=== PATIENT | female | born 1980 | race Caucasian/White ===

== ENCOUNTER 2016-12-23 22:20 | Inpatient (IN) | payer OTHER ==
[2016-12-23 22:39] VITALS: BMI 29.9
[2016-12-24] MEDS ORDERED: OXYTOCIN IN NS 334 ML IV PRN (01:14)
[2016-12-24] MEDS ORDERED: OXYTOCIN 10 UNITS/ML VIAL ONE (01:37)
[2016-12-24] MEDS ORDERED: LIDOCAINE 1% (PRES FREE) 30 ML VIAL ONE (01:37)
[2016-12-24] MEDS ORDERED: MINERAL OIL 25 ML BOT ONE (01:37)
[2016-12-24] MEDS ORDERED: OXYTOCIN IN NS 500 ML IV ONE (01:37)
[2016-12-24] MEDS ORDERED: LIDOCAINE Viscous 2% 15 ML UDCUP ONE (01:37)
[2016-12-24] MEDS ORDERED: FENTANYL/ROPIVACAINE EPIDURAL 250 ML EP ONE (01:53)
[2016-12-24] MEDS: LACTATED RINGERS 1,000 ML IV PRN ×4 (02:10→10:40)
[2016-12-24 02:14] LABS: HEMATOCRIT 38.5 % (37.0-47.0); MEAN CELL VOLUME 87.3 fl (81.0-99.0); MEAN CORPUSCULAR HEMOGLOBIN 29.5 pg (27.0-31.0); MEAN CORPUSCULAR HGB CONC 33.8 g/dl (33.0-37.0); RED CELL DISTRIBUTION WIDTH 12.7 % (11.5-14.5)
[2016-12-24] MEDS ORDERED: FENTANYL 100 MCG/2 ML VIAL ONE (02:23)
[2016-12-24] MEDS ORDERED: LIDOCAINE 2% (PRES FREE) 5 ML VIAL ONE (02:23)
--- NOTE | 2016-12-24 03:50 | PCMAN ---
OB Admission Note - History : 4 Term: 1 : 0 Abortions (S&E): 2 Livin EDC:: 12/16/16 Gestational Age (weeks): 41 Days (#/7): 1 Admit Cervical Dilation:: 4 Admit Cervical Effacement (%):: 80 Admit Station:: -1 Admit Presentaton:: vertex Membrane Status: Intact Labor Onset (Date): 12/23/16 Labor Onset (Time): 18:45 Contractions: Yes Contraction Frequency:: 1-2 Heart Rate:: 130 (reassuring tracing with occ variable decels.) Status:: good EFW:: 7.5 -8 lbs Summary of Course:: Pt followed since early by Dr Vargas. Early US confirmed dates. Regular increase in fundal height, weight gain of approx 20lbs, normal BP's thru . Pt was scheduled for induction on 12/23 for post-dates but had to be postponed due to no bed available. Pt began having more contrx after that phone call and eventiually progressed in to active labor. By 1 am she was 4cm and 80%. She was admitted for delivery. She has requested epidural narcotics for pain. After epidural placement, repeat exam shows cervix at 6-7 cm, 80%, 0 station, ROT, membranes intact bulging with contrx. Pelvis assessed to be adequate for delivery of this baby. - Labs Blood Type: O (+) positive Hct/Hgb:: 13.0 Rubella Status: Non-immune GBS Status: Negative Abnormal Labs: None Other Labs:: Platelet count was 86K in april but has been normal since; possibly a lab error? Today 217K - Review of Systems negative - Physical Exam Psych/Mental Status: Mood/Affect Appropriate, Judgment/Insight Intact Neurological: Alert, Normal Speech Lungs: Clear to Auscultation Bilaterally Cardiovascular: Regular Rate and Rhythm Abdomen: Normal Bowel Sounds Genitourinary: Normal Female Genitalia (Exam done at 3:20am bloody show, cvx 6- 7cm, 80%, 0 station, vertex loosely applied ROT with membranes bulging.) Skin: Normal Color, Warm - Problems (1) Active labor at term Status: Acute Code: [id number]/Plan: Admit for active management of labor.
[2016-12-24] MEDS ORDERED: NALOXONE HCL 0.4 MG/ML VIAL IV PRN (04:09)
[2016-12-24] MEDS ORDERED: LACTATED RINGERS 1,000 ML IV SCH ×2 (04:09→11:30)
[2016-12-24] MEDS ORDERED: METOCLOPRAMIDE HCL 5 MG/ML 2ML VIAL IV PRN (04:09)
[2016-12-24] MEDS ORDERED: ONDANSETRON 4 MG/2ML 2 ML VIAL IV PRN (04:09)
[2016-12-24] MEDS ORDERED: DIPHENHYDRAMINE HCL 50 MG/1 ML VIAL IV PRN (04:09)
[2016-12-24] MEDS ORDERED: EPHEDRINE SULFATE 50 MG/ML 1ML VIAL IV PRN (04:09)
[2016-12-24] MEDS ORDERED: SODIUM CHLORIDE 0.9% 500 ML IV PRN (04:09)
[2016-12-24] MEDS ORDERED: NALBUPHINE HCL 20 MG/ML AMP IV PRN (04:09)
[2016-12-24] MEDS ORDERED: LACTATED RINGERS 500 ML IV PRN (04:09)
[2016-12-24] MEDS ORDERED: FENTANYL/ROPIVACAINE EPIDURAL 250 ML EP SCH ×2 (04:15→06:00)
[2016-12-24] MEDS: CALCIUM CARBONATE 500 MG TAB.CHEW PO PRN ×2 (08:08→11:32)
--- NOTE | 2016-12-24 08:58 | PDOC36 ---
Provider Note Subject: ob note: cervix 9cm/100%/vertex 0 station. previous exam: cervix 8cm/100%/ vertex 0 station, arom with blood tinged clear fluid. estimated weight 7 1/2 - 8lbs.
[2016-12-24] MEDS ORDERED: OXYTOCIN IN NS 500 ML IV PRN (11:16)
--- NOTE | 2016-12-24 12:34 | PDOC36 ---
Provider Note Note: ob note: small anterior lip reduced, now fully dilated/100%/vtx +1 station.
[2016-12-24] MEDS ORDERED: SENNOSIDES 8.6 MG TABLET PO PRN (15:04)
[2016-12-24] MEDS ORDERED: BENZOCAINE/MENTHOL 60 APPLIC/BOT TP PRN (15:04)
[2016-12-24] MEDS ORDERED: CALCIUM CARBONATE 500 MG TAB.CHEW PO PRN (15:04)
[2016-12-24] MEDS ORDERED: OXYTOCIN IN NS 167 ML IV PRN (15:04)
[2016-12-24] MEDS ORDERED: LANOLIN 50 APPLIC/7G TUBE TP PRN (15:04)
[2016-12-24] MEDS ORDERED: OXYCODONE/ACETAMINOPHEN 5/325 MG TABLET PO PRN (15:04)
--- NOTE | 2016-12-24 15:04 | PCMDEL ---
Delivery Note - Labor 1st stage (hr/min):: 17hours 46 min 2nd stage (hr/min):: 1hr 48 min 3rd stage (hr/min):: 18min Total (hr/min):: 19hrs 52 min Pushed (hr/min):: 1hr 48 min - Delivery Delivery (Date): 12/24/16 Delivery (Time): 14:19 Infant Gender: Female Presentation: Cephalic Position: OA Umbilical Cord: 3 Vessel Delayed Cord Clamping:: < 1 min 1 Minute Total: 7 5 Minute Total: 8 Placenta:: intact, meconium stained, sent to pathology EBL:: 400cc Perineum:: second degree midline laceration, first degree left labial laceration Suture:: 2-0 and 4-0 chromic Anesthesia/Meds:: epidural Length ROM:: 7 hrs 41 min Comments:: delivery note: patient pushed effectively unique to oa position, with easily delivery of baby's head, shoulder dystocia noted, facilitated first with sharon tan's maneuver followed by [id number] of lower extremities at the hip, followed by suprapubic pressure which allowed delivery of the anterior shoulder followed by the posterior shoulder and delivery of the baby. maneuvers lasted 100seconds per rn. one loop of umbilical cord wrapped around baby's body. with baby out, baby placed skin to skin on mother's abdomen. cord clamped less than one minute after delivery, cord cut by father of baby, then baby taken to warmer for care. cord blood obtained. second degree laceration repaired in usual fashion and left labial laceration repaired with interrupted sutures, both resulting in complete hemostasis. placenta delivered spontaneously and intact, meconium stained membranes present, paracentral insertion of umbilical cord. cervix inspected and intact, no vaginal lacerations. rectal negative, sphincter intact. sponge, needle and instrument count correct. above maneuvers to facilitate delivery of baby were discussed with patient and family, reasons and results discussed. all questions were addressed. patient tolerated delivery well. placenta to be sent to pathology.
[2016-12-24] MEDS ORDERED: OXYMETAZOLINE HCL 0.05% 30 SPRAYS/BOT NS PRN (15:07)
[2016-12-24] MEDS: IBUPROFEN 800 MG TABLET PO PRN (17:43)
[2016-12-25] MEDS: IBUPROFEN 800 MG TABLET PO PRN ×2 (02:49→13:39)
[2016-12-25 07:11] LABS: HEMATOCRIT 30.7 % (37.0-47.0); HEMOGLOBIN 10.2 gm/l (12.0-16.0)
--- NOTE | 2016-12-25 07:39 | PDOC44 ---
- Subjective Day: 1 Reports Pain Tolerable, Reports , Reports Lochia Moderate - Objective Temp Pulse Resp BP Pulse Ox 98.1 F 80 18 144/65 12/25/16 02:40 12/25/16 02:40 12/25/16 02:40 12/25/16 02:40 Lab Results 12/25/16 06:20 Hgb 10.2 L D Hct 30.7 L Current Medications Generic Name Dose Route Start Last Admin Trade Name Freq PRN Reason Stop Dose Admin Benzocaine/Menthol 1 applic 12/24/16 15:04 12/24/16 17:44 Dermoplast TP 1 bot PRN PRN Administration Patient Comfort Calcium Carbonate/Glycine 500 - 1,000 mg 12/24/16 15:04 Tums PO BID PRN Indigestion Emollient Ointment 1 applic 12/24/16 15:04 Fya-F-Kauopo TP PRN PRN sore nipples Ropivacaine/Fentanyl/NS 250 mls @ 0 mls/hr 12/24/16 06:00 12/24/16 05:12 Fentanyl 2 Mcg/Ml + Ropivacaine 0.125% Ep Bag EP 16 mls/hr EPI KIERAN Administration Protocol Per Protocol Ibuprofen 800 mg 12/24/16 15:04 12/25/16 02:49 Motrin PO 800 mg Q8H PRN Administration Pain (Mild) Oxycodone/Acetaminophen 1 - 2 tab 12/24/16 15:04 Percocet 5/325 PO Q4H PRN Pain (Moderate) Oxymetazoline HCl 2 sprays 12/24/16 15:07 Afrin Nasal [place] NS BID PRN Congestion Senna 17.2 mg 12/24/16 15:04 Senokot PO BEDTIME PRN Comfort - Physical Exam Fundus: Firm, At Umbilicus Abdomen: Normal Bowel Sounds, No Tenderness, No Distention Disposition: Stable (pt desires d/c today; d/c home; f/u 4w), Anticipate DC to Home (pt desires d/c today)
--- NOTE | 2016-12-25 07:41 | PDOC39B ---
Hospital Course: ADMIT DATE: 12/24/16 DISCHARGE DATE: 12/25/16 ADMISSION DIAGNOSES: post-term , spontaneous labor PROCEDURES: normal vaginal delivery HISTORY OF PRESENT ILLNESS: 36 year old G4 T1 L1 at 41 weeks 1 days presenting with labor at 2cm. HOSPITAL COURSE: The patient progressed spontaneously. Pt had a normal vaginal delivery of baby female, 7/8 apgars, 8lbs 2oz. By day of discharge the patient is ambulating, eating, voiding, and passing flatus without difficulty. Pain is controlled and lochia is appropriate. She is []. Pt desires discharge on PPD#1 and is stable. Vital Signs - 24 hr 12/24/16 12/24/16 12/24/16 14:39 14:54 15:09 Temperature 98.6 F Pulse Rate 104 93 89 Respiratory 18 16 16 Rate Blood Pressure 117/75 127/61 119/57 12/24/16 12/24/16 12/24/16 15:24 15:38 16:10 Temperature 98.6 F Pulse Rate 93 88 81 Respiratory 16 16 16 Rate Blood Pressure 127/61 127/60 125/69 12/24/16 12/24/16 12/24/16 16:38 18:05 20:15 Temperature 99.7 F 98.1 F 98.2 F Pulse Rate 71 82 71 Respiratory 16 18 Rate Blood Pressure 133/74 132/66 125/59 12/25/16 02:40 Temperature 98.1 F Pulse Rate 80 Respiratory 18 Rate Blood Pressure 144/65 Laboratory Tests 12/24/16 12/25/16 01:50 06:20 WBC 19.0 H RBC 4.41 Hgb 13.0 10.2 L D Hct 38.5 30.7 L MCV 87.3 MCH 29.5 MCHC 33.8 RDW 12.7 Plt Count 217 - Physical Exam Vital Signs: Temp Pulse Resp BP Pulse Ox 98.1 F 80 18 144/65 12/25/16 02:40 12/25/16 02:40 12/25/16 02:40 12/25/16 02:40
[2016-12-25 14:05] VITALS: BP 128/85
--- NOTE | 2016-12-31 14:21 | SURGPATH ---
[facility] [address] [place] [id number] Patient Name: LINDA RICHTER MR#: [id number] : 1980 Gender: F Specimen #: [id number] Collected: 12/24/2016 Received: 12/28/2016 Reported: 12/29/2016 Submitting Phys: KEITH CALLES I Copy To Phys: HUMBERTO WILSON [facility] TIBURCIO ANGEL Clinical History / Pre-Operative Diagnosis: MECONIUM IN LABOR Specimen Source / Surgical Procedure Performed: PLACENTA Interpretation: PLACENTA, DELIVERY: - ACUTE CHORIOAMNIONITIS AND FUNISITIS - MECONIUM STAINED MEMBRANES Electronically Signed Out Rebel Cooper M.D. Gross Description: The specimen is received in a formalin filled container labeled with the patient's name and "placenta". A 35 x 1 cm, hyperkalemia, three vessel umbilical cord inserts 4.5 cm from the nearest edge of a 22 x 19 x 3 cm, 503 g discoid placenta. The surface and membranes are glistening and montano green. The membranes insert normally. There is no grossly recognizable subchorionic fibrin. The maternal surface is red-brown spongy without missing cotyledons. Sectioning through the disc reveals no nodule or induration. Gross summary: Perry placenta with green fernández discoloration suggestive of meconium staining. Summary of sections: A-umbilical cord and membranes B-edge section adjacent to umbilical cord insertion site C-random full thickness section Antonietta Headley Microscopic Description: The membrane roll is remarkable for the presence of abundant vigil brown pigment within the amnion. Also scattered neutrophils are present within the membrane roll. The umbilical cord cross-sections focally contain neutrophils within a vessel wall. Sections of the placental disc reveal mature chorionic villi. Focally neutrophils are identified within fibrin immediately deep to the surface of the disc. The small amount of attached decidua is unremarkable. 1: [id number]
== END 2016-12-25 17:30 | disposition home or self-care (01) | DRG 775 ==
LOC: FBC 22:20 → FBCOUT 22:20 → FBC 12-24 01:15
PROVIDERS: ADMIT Obstetrics & Gynecology; ATTEND Obstetrics & Gynecology
PROC: 10E0XZZ Delivery of Products of Conception, External Approach (ICD-10-PCS; principal; 2016-12-24)
PROC: 0KQM0ZZ Repair Perineum Muscle, Open Approach (ICD-10-PCS; 2016-12-24)
PROC: 10907ZC Drainage of Amniotic Fluid, Therapeutic from Products of Conception, Via Natural or Artificial Opening (ICD-10-PCS; 2016-12-24)
DX: O48.0 Post-term pregnancy (principal); Z3A.41 41 weeks gestation of pregnancy; O76 Abnormality in fetal heart rate and rhythm complicating labor and delivery; Z37.0 Single live birth; O70.1 Second degree perineal laceration during delivery